=== PATIENT | male | born 1995 | race Caucasian/White ===

== ENCOUNTER 2021-06-10 08:14 | Outpatient (CLI) | payer BC ==
[2021-06-10 16:10] LABS: SARS-CoV-2 PCR by NAA Not Detected (NotDetected)
== END 2021-06-10 08:15 | disposition home or self-care (01) ==
LOC: LABBT 08:14
PROVIDERS: ATTEND Internal Medicine
DX: D69.6 Thrombocytopenia, unspecified (principal); R79.89 Other specified abnormal findings of blood chemistry; Z20.822 Contact with and (suspected) exposure to COVID-19
CPT/HCPCS: U0003; U0005

== ENCOUNTER 2021-06-13 07:29 | Day surgery (SDC) | payer BC ==
[2021-06-11 15:49] VITALS: BMI 26.4
[2021-06-13 08:04] LABS: INR-International Normal Ratio 0.9; Prothrombin Time 12.6 sec (12.0-14.7)
[2021-06-13 08:09] VITALS: BP 125/72; TEMP 98
[2021-06-13 08:12] LABS: Hemoglobin 15.3 g/dL (14.0-18.0); Mean Corpuscular HGB CONC 34.2 g/dL (32.0-36.0); Mean Corpuscular Hemoglobin 30.9 pg (27.0-31.0); Mean Corpuscular Volume 90.5 fL (78.0-98.0); Mean Platelet Volume 6.3 fL (7.4-10.4); Platelet Count 145 thou/uL (130-400); RBC Distribution Width 11.8 % (11.5-14.5); Red Blood Cell (RBC) Count 4.95 mill/uL (4.70-6.10)
[2021-06-13] MEDS ORDERED: Lidocaine 1% PF 5 ML VIAL ONE (08:25)
[2021-06-13] MEDS ORDERED: Fentanyl 100 MCG/2 ML VIAL ONE (08:25)
[2021-06-13] MEDS ORDERED: Sodium Bicarbonate 2.5 MEQ/5 ML VIAL ONE (08:25)
[2021-06-13] MEDS ORDERED: Midazolam HCl 2 mg/2 ml Vial ONE (08:25)
[2021-06-13 09:01] LABS: Lymphocytes 58 % (21-51); MDiff Complete? YES; Monocytes 9 % (0-10); Neutrophil 31 % (42-75); RBC Morphology Normal; Reactive Lymphocytes 2 % (0-10)
== END 2021-06-13 12:20 | disposition home or self-care (01) ==
LOC: ULT 07:29
PROVIDERS: ATTEND Internal Medicine
PROC: 0FB13ZX Excision of Right Lobe Liver, Percutaneous Approach, Diagnostic (ICD-10-PCS; principal; 2021-06-13)
DX: K75.9 Inflammatory liver disease, unspecified (principal); D69.6 Thrombocytopenia, unspecified
CPT/HCPCS: 47000; 76942; 85025; 85610; 85730; 88307; 88313; 88323; 88325; J2250; J3010